=== PATIENT | female | born 1940 | race Caucasian/White ===

== ENCOUNTER → 2018-03-27 | Outpatient (CLI) | payer MEDICARE, OTHER | END | disposition home or self-care (01) | LOC: CFH 08:01 | PROVIDERS: ATTEND Internal Medicine Cardiovascular Disease | DX: Z01.810 Encounter for preprocedural cardiovascular examination (principal); I08.2 Rheumatic disorders of both aortic and tricuspid valves; I10 Essential (primary) hypertension | CPT/HCPCS: 93306 ==

== ENCOUNTER 2018-04-08 10:47 | Day surgery (SDC) | payer MEDICARE, OTHER ==
[~2018-04-08] VITALS: Ht 182.9 cm; Wt 97.5 kg
[2018-04-08 11:12] VITALS: BP 133/69
[2018-04-08] MEDS ORDERED: LIDOCAINE/PF 1%, 30ML ONE (11:35)
== END 2018-04-08 12:44 | disposition home or self-care (01) ==
LOC: CACL 10:47
PROVIDERS: ATTEND Internal Medicine Cardiovascular Disease
DX: I49.1 Atrial premature depolarization (principal); G45.8 Other transient cerebral ischemic attacks and related syndromes; I10 Essential (primary) hypertension; Z79.82 Long term (current) use of aspirin; Z01.810 Encounter for preprocedural cardiovascular examination; Z87.39 Personal history of other diseases of the musculoskeletal system and connective tissue
CPT/HCPCS: 33282; C1764; J3490